=== PATIENT | male | born 1980 | race Two or more races ===

== ENCOUNTER 2016-10-12 18:14 | Emergency (ER) | payer OTHER ==
[~2016-10-12] VITALS: Ht 182.9 cm; Wt 97.5 kg
[2016-10-12 18:15] VITALS: BP 161/100
[2016-10-12] MEDS ORDERED: HYDROcodone/APAP 5/325MG 1 TAB TABLET PO ONE (18:30)
[2016-10-12] MEDS ORDERED: BUPIVACAINE 0.5% 50 ML VIAL. INJ ONE (18:30)
[2016-10-12] MEDS ORDERED: DIPHTH,PERTUSS(ACELL),TET TOX 0.5 ML DISP.SYRIN. VAX IM ONE (18:30)
--- NOTE | 2016-10-12 18:35 | PHYS DOC ---
Adult General Chief Complaint Chief Complaint: FINGER INJURY HPI HPI Patient is a 36 year old medical presents with crush injury to the left middle finger. Patient states he got his left middle finger crushed between a pallet and a rock. Patient is right-handed. Review of Systems Review of Systems Constitutional: Denies fever or chills [] Musculoskeletal: Left middle finger crush injury Integument: Denies rash or skin lesions [] Neurologic: Denies headache, focal weakness or sensory changes [] Endocrine: Denies polyuria or polydipsia [] Current Medications Current Medications Current Medications Medications (Trade) Dose Ordered Sig/Yesika Start Time Stop Time Status Last Admin Dose Admin Acetaminophen/ Hydrocodone Bitart (Lortab 5/325) 2 tab 1X ONCE 10/12/16 18:30 10/12/16 18:32 DC 10/12/16 18:52 2 TAB Bupivacaine HCl (Marcaine 0.5%) 50 ml 1X ONCE 10/12/16 18:30 10/12/16 18:32 DC 10/12/16 18:52 50 ML Diphtheria/ Tetanus/Acell Pertussis (Boostrix) 0.5 ml ONCE ONCE 10/12/16 18:30 10/12/16 18:32 DC 10/12/16 18:54 0.5 ML Allergies Allergies Allergies Coded Allergies Type Severity Reaction Last Updated Verified No Known Drug Allergies 10/12/16 No Physical Exam Physical Exam Constitutional: Well developed, well nourished, no acute distress, non-toxic appearance. [] Skin: See extremity Back: No tenderness, no CVA tenderness. [] Extremities: Distal end of the left middle finger dorsal aspect with multiple lacerations approximately 6 cm long. There is no obvious tendon involvement. Patient able to flex and extend the right middle finger at the MIP PIP and DIP joints. +2 left radial pulse. Cap refill less than 2 seconds the left middle finger. Adequate sensation to the right middle finger. Cap refill less than 2 seconds the right middle finger. Neurologic: Alert and oriented X 3, normal motor function, normal sensory function, no focal deficits noted. [] Psychologic: Affect normal, judgement normal, mood normal. [] Current Patient Data Vital Signs Vital Signs Date Time Temp Pulse Resp B/P (MAP) Pulse Ox O2 Delivery O2 Flow Rate FiO2 10/12/16 18:52 18 Room Air 10/12/16 18:15 97.9 96 96 97.9 EKG EKG [] Radiology/Procedures Radiology/Procedures Indication: [] Left middle finger laceration Procedure: The patient was placed in the appropriate position and 0.5% of bupivacaine was used to do a digital block to the finger successful. The finger was cleaned with 500 ML of normal saline and 30 mL of Betadine. The laceration was closed with 12 interrupted stitches using 5. 0 Vicryl. The wound was covered with nonstick dressing and splinted by me. Neurovascular exam normal post splinting. Total repaired wound length: Approximately 6 cm long Other Items: none The patient tolerated the procedure: well Complications:none Course & Med Decision Making Course & Med Decision Making Pertinent Labs and Imaging studies reviewed. (See chart for details) Patient is in the ED with left middle finger crush injury area and he has a laceration over the injury site. There is no obvious tendon involvement. Left middle finger x-rays interpreted by Dr. Johnson were negative for any acute findings. Patient's laceration was closed by me as noted in procedures. We updated his tetanus. He was discharged with cephalexin and hydrocodone. He was instructed not to drive or operate machinery on the hydrocodone. He was provided wound care instructions as well as return precautions. Laceration repair done with dissolvable sutures. Finger was splinted by me for comfort. Neurovascular exam done by me post splinting is normal, cap refill less than 2 seconds the finger. Dragon Disclaimer Dragon Disclaimer This electronic medical record was generated, in whole or in part, using a voice recognition dictation system. Departure Departure Impression: Primary Impression: Crushing injury of left middle finger Additional Impression: Laceration of left middle finger Disposition: 01 HOME, SELF-CARE Condition: STABLE Patient Instructions: Crush Injury, Fingers or Toes, [id number], Laceration Care, Adult, [id number] Additional Instructions: You were seen for left middle finger laceration from a crush injury. Keep the finger clean and dry. You can shower after 24 hours and get the finger weight. You can shower today but don't get the finger wet. Keep the dressing on for 24 hours then you can take it out if not bleeding, cover it if you work in a dirty wet environment. Apply Neosporin to the area twice a day. Complete your antibiotics. Monitor the area for signs of infection including but not limited to increase draining, yellow purulent material drainage, increased warmth, come back to the ED if they occur. Follow-up with the workman comp doctor Scripts Cephalexin (CEPHALEXIN) 500 Mg Capsule 1 CAP PO QID, #40 CAP Prov: SHILPA NEWELL APRN 10/12/16 Hydrocodone/Apap 5-325 (NORCO 5-325 TABLET) 1 Each Tablet 1-2 TAB PO Q4-6HRS Y for PAIN, #30 TAB Prov: SHILPA NEWELL APRN 10/12/16 Problem Qualifiers Primary Impression: Crushing injury of left middle finger Encounter type: initial encounter Qualified Codes: S67.193A - Crushing injury of left middle finger, initial encounter SHILPA NEWELL APRN Oct 12, 2016 18:35
[2016-10-12] MEDS ORDERED: HYDR-971 PO (19:48)
[2016-10-12] MEDS ORDERED: CEPH500C PO (19:48)
--- NOTE | 2016-10-13 08:55 | RAD ---
Indication injury to the tip of the long finger. An AP view of the left hand was obtained as well as oblique and lateral imaging targeted to the long finger. Soft tissue injury is noted. Only seen on the lateral view is a linear density suggestive of an avulsion fracture off the distal aspect of the middle phalanx involving the cortex. A radiopaque foreign body accounting for the appearance is not entirely excluded.
== END 2016-10-12 20:00 | disposition home or self-care (01) ==
LOC: ER 18:14
DX: S61.213A Laceration without foreign body of left middle finger without damage to nail, initial encounter (principal); W23.0XXA Caught, crushed, jammed, or pinched between moving objects, initial encounter; Y93.89 Activity, other specified; Y92.89 Other specified places as the place of occurrence of the external cause; Y99.8 Other external cause status
CPT/HCPCS: 12002; 73140; 90471; 90715; 99284; J3490; J7040